=== PATIENT | female | born 1940 | race Caucasian/White ===

== ENCOUNTER 2016-09-30 22:47 | Emergency (ER) | payer MEDICARE, OTHER ==
[2016-09-30 22:59] VITALS: BP 163/93
--- NOTE | 2016-09-30 23:38 | PHYS DOC ---
Past Medical History Past Medical History: CAD, Hypertension Additional Past Medical Histor: BLOOD CLOTS Past Surgical History: Knee Replacement Additional Past Surgical Histo: RIGHT SHOULDER,BOTH ELBOWS CARDIAC ANGIOPLASTY Alcohol Use: None Drug Use: None Adult General Chief Complaint Chief Complaint: SKIN PROBLEM [facility] HPI Patient is a 76 year old female presents emergency department stating that she was sitting there watching TV tonight when she scratched the left side of her nose and it started bleeding. She states that she was trying to apply pressure she placed ice packs on the area and it bled for over 2 hours. Patient then thought she needed to seek treatment and presented here to the emergency department. Patient does state that she takes Xarelto. Patient denies ever having had any issues with bleeding in the past. Patient states that her heart doctor told her that if she would ever have any issues with bleeding to come to the emergency department. Review of Systems Review of Systems Constitutional: Denies fever or chills [] Eyes: Denies change in visual acuity, redness, or eye pain [] HENT: Denies nasal congestion or sore throat [] Respiratory: Denies cough or shortness of breath [] Cardiovascular: No additional information not addressed in HPI [] GI: Denies abdominal pain, nausea, vomiting, bloody stools or diarrhea [] : Denies dysuria or hematuria [] Musculoskeletal: Denies back pain or joint pain [] Integument: Denies rash or skin lesions. Area on the left side of the nose that appears to be red at this time no drainage or discharge noted. Neurologic: Denies headache, focal weakness or sensory changes [] Endocrine: Denies polyuria or polydipsia [] Allergies Allergies Allergies Coded Allergies Type Severity Reaction Last Updated Verified iodine Allergy Intermediate RASH 09/30/16 Yes Physical Exam Physical Exam Constitutional: Well developed, well nourished, no acute distress, non-toxic appearance. [] HENT: Normocephalic, atraumatic, bilateral external ears normal, oropharynx moist, no oral exudates, nose normal. [] Eyes: PERRLA, EOMI, conjunctiva normal, no discharge. [] Neck: Normal range of motion, no tenderness, supple, no stridor. [] Cardiovascular:Heart rate regular rhythm, no murmur [] Lungs & Thorax: Bilateral breath sounds clear to auscultation []] Skin: Warm, dry, no erythema, no rash. Patient with a 4 x 4 on the left side of the nose was removed with no drainage or discharge noted to the site. No appearance of a sore scabbed area noted. Back: No tenderness Extremities: No tenderness, no cyanosis, no clubbing, ROM intact, no edema. [] Neurologic: Alert and oriented X 3, normal motor function, normal sensory function, no focal deficits noted. [] Psychologic: Affect normal, judgement normal, mood normal. [] Current Patient Data Vital Signs Vital Signs Date Time Temp Pulse Resp B/P Pulse Ox O2 Delivery O2 Flow Rate FiO2 09/30/16 22:59 98.6 96 18 97 Room Air 98.6 Lab Values Laboratory Tests Test 09/30/16 23:20 Prothrombin Time 26.0SEC (11.7-14.0) H Prothrombin Time INR 2.6 (0.8-1.1) H EKG EKG [] Radiology/Procedures Radiology/Procedures [] Course & Med Decision Making Course & Med Decision Making Pertinent Labs and Imaging studies reviewed. (See chart for details) Spoke with patient in regards to having a PT/INR drawn she initially refused. Patient's PT is 26 INR is 2.6 both of these are elevated results. Patient will be discharged home with recommendations to call her primary care physician tomorrow in regards to her PT and INR being elevated. At the current time patient's left side of the nose has had no bleeding. Patient agrees with discharge instructions treatment regimens and follow-up recommendations. Signs and symptoms to return back to emergency department been provided. [] Dragon Disclaimer Dragon Disclaimer This electronic medical record was generated, in whole or in part, using a voice recognition dictation system. Departure Departure Impression: Primary Impression: Bleeding from wound Disposition: HOME, SELF-CARE Condition: STABLE Referrals: NO PCP (PCP) Patient Instructions: Bleeding Time, Wound Care, Autl-fx-Sorb Additional Instructions: You've been evaluated for bleeding from the left side of your nose. Your prothrombin time result was 26 and the INR is 2.6 these are both elevated results. You will need to contact your physician who provided she will with Katie in regards to these results. If bleeding starts on the left side of your nose again please apply direct pressure. Follow-up with your primary care physician tomorrow. Return back to emergency department for signs and symptoms of become worse. MAULIK COCHRAN [employer] CAPTAIN Sep 30, 2016 23:38
[2016-09-30 23:48] LABS: INR 2.6 (0.8-1.1)
== END 2016-10-01 00:05 | disposition home or self-care (01) ==
LOC: ER 22:47
DX: S00.31XA Abrasion of nose, initial encounter (principal); I10 Essential (primary) hypertension; I25.10 Atherosclerotic heart disease of native coronary artery without angina pectoris; Z91.041 Radiographic dye allergy status; X58.XXXA Exposure to other specified factors, initial encounter; Y93.89 Activity, other specified; Y99.8 Other external cause status; Y92.89 Other specified places as the place of occurrence of the external cause
CPT/HCPCS: 36415; 85610; 99283